=== PATIENT | female | born 1940 | race Caucasian/White ===

== ENCOUNTER 2019-05-15 13:29 | Day surgery (SDC) | payer MEDICARE, BC ==
--- NOTE | 2019-05-15 06:22 | History and Physical - [facility] ---
CHIEF COMPLAINT/HISTORY OF CHIEF COMPLAINT: This patient presents with a history of intractable post lumbar laminectomy radiculopathy. Due to the failure of therapies a spinal cord stimulator trial was conducted with 75-85% pain control. Due to the failure of therapy and the success of the trial, the patient presents today for implantation of a permanent system. PAST MEDICAL HISTORY: Degenerative arthritis, fibromyalgia, peripheral neuropathy, and hypertension. PAST SURGICAL HISTORY: Shoulder surgery and knee surgery. EMPLOYMENT STATUS: Retired. MEDICATIONS ON ADMISSION: List to be provided. ALLERGIES: CLINDAMYCIN. FAMILY/PSYCHOSOCIAL HISTORY: Social history - Caffeine. Family history - Coronary artery disease and cancer. SYSTEMS REVIEW: The patient seems appropriate in no acute distress. PHYSICAL EXAMINATION: Height is 5'4", weight is 200 pounds. No vital signs. HEENT: Within normal limits. LUNGS: Clear. HEART: Rapid and regular. ABDOMEN: Nontender. MUSCULOSKELETAL: Examination of the musculoskeletal system shows diffuse tenderness throughout the lumbar spine. Range of motion does produce pain into the low back extending into both lower extremities, ankles and feet. Ambulation - No assistive device utilized. NEUROLOGIC: Cranial nerves are intact. There is mild motor and sensory abnormalities to the lower extremities, right greater than left. IMPRESSION: POST LUMBAR LAMINECTOMY SYNDROME, ICD-10 CODE M96.1 WITH LUMBAR RADICULOPATHY, ICD-10 CODE M54.16 AND M54.17. PLAN: The patient is here for implantation of a permanent spinal cord stimulator after a successful trial and failure of therapy. The procedure will be considered outpatient although an overnight stay will be evaluated. JOB NUMBER: [id number] MTDD
[~2019-05-15 13:29] MED LIST: ACETAMINOPHEN 1,000 MG/100 ML BTL IVPB ONE; FAMOTIDINE 20MG TABLET PO ONE; MECLIZINE 25 MG TABLET PO ONE; METOCLOPRAMIDE 10 MG TABLET PO ONE; VANCOMYCIN 1GM/200ML PREMIX 1 GM/200 ML PIGGYBACK IVPB ONE
[2019-05-15] MEDS ORDERED: FENTANYL PF 100MCG/2ML VIAL IV ONE (13:30)
[2019-05-15] MEDS ORDERED: MIDAZOLAM HCL 2MG/2ML VIAL IV ONE ×3 (13:30→18:00)
[2019-05-15] MEDS ORDERED: LIDOCAINE 2% MDV (20MG/ML) 20ML VIAL IV ONE (13:30)
[2019-05-15] MEDS ORDERED: KETAMINE HCL 100MG/1ML VIAL INJ ONE (13:30)
[2019-05-15] MEDS ORDERED: PROPOFOL 10 MG/ML VIAL IV ONE (13:30)
[2019-05-15] MEDS ORDERED: RINGERS SOLUTION,LACTATED 1,000 ML IV ONE (13:50)
[2019-05-15] MEDS ORDERED: CEFAZOLIN 1G VIAL IR ONE (16:47)
[2019-05-15] MEDS ORDERED: BUPIVACAINE 0.5% W/EPI MPF 30 ML VIAL SQ ONE ×2 (16:47)
[2019-05-15] MEDS ORDERED: LIDOCAINE 1% W/EPI 1:100,000 MDV 20 ML VIAL SQ ONE ×2 (16:47)
[2019-05-15] MEDS ORDERED: DIPHENHYDRAMINE HCL 50 MG/ML VIAL IVP PRN ×2 (19:30)
[2019-05-15] MEDS ORDERED: OXYCODONE/APAP 10MG-325MG TABLET PO PRN ×2 (19:30)
[2019-05-15] MEDS ORDERED: METOCLOPRAMIDE 10 MG TABLET PO PRN (19:30)
[2019-05-15] MEDS ORDERED: HYDROMORPHONE HCL 2 MG/ML VIAL IM PRN ×2 (19:30)
[2019-05-15] MEDS ORDERED: METOCLOPRAMIDE HCL 10 MG/2 ML VIAL IVP PRN (19:30)
[2019-05-15] MEDS ORDERED: SENNOSIDES/DOCUSATE SODIUM UD CAPSULE PO PRN ×2 (19:30)
[2019-05-15] MEDS ORDERED: TEMAZEPAM 15 MG CAPSULE PO PRN (19:30)
[2019-05-15] MEDS ORDERED: ACETAMINOPHEN 325 MG TAB PO PRN (19:30)
[2019-05-15] MEDS ORDERED: AL HYDROX/MAG HYDROX 30ML UD PO PRN (19:30)
[2019-05-15] MEDS ORDERED: RINGERS SOLUTION,LACTATED 1,000 ML IV SCH (19:30)
[2019-05-15] MEDS ORDERED: DIPHENHYDRAMINE HCL 25 MG CAPSULE PO PRN ×2 (19:30)
[2019-05-15] MEDS ORDERED: HYDROCODONE/APAP 7.5/325MG TABLET PO PRN (19:30)
[2019-05-15] MEDS ORDERED: HYOSCYAMINE SULFATE ODT 0.125 MG TAB.SUBL PO PRN (19:42)
[2019-05-15] MEDS ORDERED: ZOLPIDEM TARTRATE 5 MG TABLET PO PRN (19:51)
[2019-05-15] MEDS: HYDROCODONE/APAP 7.5/325MG TABLET PO PRN (19:54)
[2019-05-15] MEDS: CEFAZOLIN 2 Gram 2 GM/50 ML BAG IVPB SCH (20:34)
[2019-05-15] MEDS ORDERED: CYCLOBENZAPRINE 10MG TABLET PO SCH (22:00)
[2019-05-15] MEDS ORDERED: AMLODIPINE BESYLATE 5MG TAB PO SCH (22:00)
[2019-05-15] MEDS ORDERED: MONTELUKAST SODIUM 10MG TABLET PO SCH (22:00)
[2019-05-16] MEDS: HYDROCODONE/APAP 7.5/325MG TABLET PO PRN ×3 (00:42→10:14)
[2019-05-16] MEDS: CEFAZOLIN 2 Gram 2 GM/50 ML BAG IVPB SCH ×2 (03:30→09:54)
[2019-05-16] MEDS ORDERED: LEVOFLOXACIN 500 MG TABLET PO SCH (06:00)
[2019-05-16] MEDS ORDERED: PANTOPRAZOLE SODIUM 40 MG TABLET PO SCH (07:00)
[2019-05-16] MEDS ORDERED: DULOXETINE HCL 30 MG CAPSULE.DR PO SCH (10:00)
[2019-05-16] MEDS ORDERED: CHOLECALCIFEROL 1,000 UNIT TABLET PO SCH (10:00)
[2019-05-16] MEDS ORDERED: CALCIUM POLYCARBOPHIL 625 MG TABLET PO SCH (10:00)
[2019-05-16] MEDS ORDERED: ASCORBIC ACID 500 MG TAB PO SCH (10:00)
[2019-05-16] MEDS ORDERED: BIFIDOBACTERIUM INFANTIS 4 MG CAPSULE PO SCH (10:00)
[2019-05-16] MEDS ORDERED: LISINOPRIL 20 MG TABLET PO SCH (10:00)
[2019-05-16] MEDS ORDERED: MULTIVITAMINS/MINERALS TABLET PO SCH (10:00)
--- NOTE | 2019-05-16 10:18 | Operative Note - [facility] ---
DATE OF SURGERY: 05/15/2019 PREOPERATIVE DIAGNOSIS: POST LUMBAR LAMINECTOMY SYNDROME, ICD-10 CODE M96.1, WITH RADICULOPATHY, ICD-10 CODE M54.16 AND M54.17. POSTOPERATIVE DIAGNOSIS: POST LUMBAR LAMINECTOMY SYNDROME, ICD-10 CODE M96.1, WITH LUMBAR RADICULOPATHY, ICD-10 CODE M54.16 AND M54.17. OPERATION: 1. FLUOROSCOPICALLY GUIDED LEFT EPIDURAL ACCESS LEFT T11-T12, PLACEMENT OF SPINAL CORD STIMULATOR LEAD 1 [employer] 16, 6 ELECTRODES POSITIONED LEFT T9. 2. FLUOROSCOPICALLY GUIDED EPIDURAL ACCESS RIGHT T11-T12, PLACEMENT OF SPINAL CORD STIMULATOR LEAD 2 [employer] 16, 6 ELECTRODES POSITIONED RIGHT T9. 3. COMPLEX PROGRAMMING OF LEAD 1 OVER 20 MINUTES FOLLOWED BY COMPLEX PROGRAMMING OF LEAD 2 OVER 20 MINUTES. 4. INCISION AND SUBCUTANEOUS DISSECTION AND ANCHORING OF LEAD 1 AND LEAD 2 TO SUPRASPINOUS FASCIA WITH A [employer] LOCKING ANCHOR. 5. INCISION AND SUBCUTANEOUS DISSECTION AND CREATION OF SUBCUTANEOUS POUCH AT LEFT POSTERIOR GLUTEAL MARGIN FOR PLACEMENT OF GENERATOR IDENTIFIED A [employer] PROGRAMMABLE RECHARGEABLE WAVEWRITER. 6. TUNNELLING BETWEEN LEAD POUCHES, PLACEMENT OF EXTERNAL PORTION OF LEAD 1 AND LEAD 2 INTO GENERATOR POUCH, EACH LED INTERFACED WITH GENERATOR. 7. CLOSURE OF TWO MIDLINE INCISIONS FOR LEADS, CLOSURE OF GENERATOR POUCH USING VICRYL FOR FASCIA AND LATRICE FOR SKIN. OP-SITE DRESSING PLACED. 8. COMPLEX PROGRAMMING INTERNAL GENERATOR HOME USE 2 STIMULATORS RECOVERY ROOM 20 MINUTES. SURGEON: Tung Deleon D.O. ANESTHESIA: Local sedation. ANESTHESIA PROVIDER: LUPE Stringer CRNA INDICATION: This patient presents with a history of intractable lumbar radiculopathy. Due to the failure of therapy, a stimulator trial was conducted with 75-85% pain control. Due to the failure of all therapies and the success of the trial, she is here for permanent implantation of a system with generator. PROCEDURE: Intravenous line, vital sign monitoring, IV sedation. Prepped and draped with sterile technique. Under imaging with the patient positioned prone, sterile prep, sterile technique, under imaging the epidural interspace at T11- T12 was marked bilateral, skin infiltrated at each, using two separate curved access Epi-Med needles with loss of resistance, the space was accessed. On the left spinal cord stimulator Lead 1, a [place] [employer] 16, 6 electrodes was position left of midline at T9. With the access right a spinal cord stimulator Lead 2, a [place] [employer] 16, 6 electrodes was positioned right of T9. Each of the access points was atraumatic. No blood. No CSF. Complex programming of Lead 1 over 20 minutes and complex programming of Lead 2 over 20 minutes resulting in a complete pattern of stimulation across the back and into the legs. Patient indicating we hit all of the areas of the pain. She was given the option to implant, continue to program, or removed and she opted to implant. The questions were repeated with the same response. She was re-sedated. The skin above and below both needles was infiltrated, an incision was made and subcutaneous dissection was conducted to the supraspinous fascia. Each of the leads was anchored to the supraspinous fascia with a [employer] locking anchor and nonabsorbable suture. At the left posterior gluteal margin at a site picked by the patient for the generator, the skin was infiltrated, incision was made, and subcutaneous dissection was conducted to form a pouch of suitable size and depth for the generator, A tunnelling tool was then used to carry each of the two leads into the generator pouch. The two leads were then interfaced with the generator. Antibiotic irrigation and Bovie for hemostasis. The leads were placed into their pouches, the generator was placed into its own pouch, and then all three incisions were closed using Vicryl for the fascia and latrice for the skin. Op-Site dressing was then placed. She was transported to the Recovery Room stable. No side effects from the procedure or sedation. She has full functionality of her extremities. Because of the time of day and the amount of surgery, she will be kept overnight for observation and discharged in the morning. DISCHARGE INSTRUCTIONS: 1. The sites will remain clean and dry, no showering or bathing in any way that would disruption dressings, if it happens contact the clinic. 2. Standard medications resumed including the antibiotic Levaquin, she will take 500 mg once a day for fourteen days. 3. When she is discharged in the morning, the office will contact the patient in the next two days to set up a time in the next 7-10 days for us to evaluate the sites. Until then, she is to keep her activities low. All other instructions provided, numbers to contact if problems given. She will be discharged. JOB NUMBER: [id number] [facility]
--- NOTE | 2019-05-18 13:40 | RADIOLOGY REPORT ---
EXAMINATION: Thoracolumbar Spine Single View EXAM DATE: 05/15/2019 5:57 PM TECHNIQUE: Lateral view INDICATION: S/P SCS IMPLANT COMPARISON: None ENCOUNTER: Initial FINDINGS: AP view of the thoracolumbar junction demonstrates implantable epidural stimulator present at T8-9 th rough 11. Alignment is good. No complicating process is noted IMPRESSION: Satisfactory postoperative exam Dictated by: Dex Thomas MD on 05/18/2019 1:38 PM. .
== END 2019-05-16 11:10 | disposition home or self-care (01) ==
LOC: SUR 13:29 → MEDSURG 18:46 → SUR 05-16 11:10
PROVIDERS: ATTEND Pain Medicine Interventional Pain Medicine
DX: M96.1 Postlaminectomy syndrome, not elsewhere classified (principal); M54.16 Radiculopathy, lumbar region; M54.17 Radiculopathy, lumbosacral region; I10 Essential (primary) hypertension; Z98.61 Coronary angioplasty status; G62.9 Polyneuropathy, unspecified; G47.33 Obstructive sleep apnea (adult) (pediatric)
CPT/HCPCS: 63650; 63685; 01936; 95972; 72020; C1883; C1820; J3490 ×3; J3010; J0690 ×2; J3370; J7120